=== PATIENT | male | born 1990 | race Caucasian/White ===

== ENCOUNTER 2021-02-23 11:25 | Emergency (ER) | payer BC ==
[~2021-02-23] VITALS: Ht 177.8 cm; Wt 75.8 kg
[~2021-02-23 11:25] MED LIST: LAMICTAL100 MG; LATUDA60 MG; POLYMYXIN B/TMP10 ML OP
[2021-02-23] MEDS ORDERED: ZYRTEC10 M4 PO (11:40)
[2021-02-23] MEDS ORDERED: FLONASE 0.05%50 MCG NARES (11:40)
[2021-02-23] MEDS ORDERED: NICODERM CQ1 EAC1 TRANSDERM (11:41)
[2021-02-23 12:06] LABS: ABSOLUTE BASOPHILS 0.1 thou/uL (0.0-0.2); ABSOLUTE EOSINOPHILS 0.1 thou/uL (0.0-0.7); ABSOLUTE LYMPHOCYTES 1.8 thou/uL (0.8-5.3); ABSOLUTE MONOCYTES 0.8 thou/uL (0.0-1.2); ABSOLUTE NEUTROPHILS 10.9 thou/uL (1.6-8.1); BASOPHILS 0.5 %; EOSINOPHILS 0.5 %; HEMATOCRIT 44.9 % (42.0-52.0); HEMOGLOBIN 15.6 gm/dL (14.0-18.0); LYMPHOCYTES 13.3 %; MCH 32.9 pg (26.0-34.0); MCHC 34.8 g/dL (28.0-37.0); MCV 94.4 fL (80.0-100.0); MONOCYTES 6.1 %; MPV 9.6 fl. (7.2-11.1); NUCLEATED RBCS 0 /100WBC; PLATELET COUNT* 224 thou/uL (150-400); POLYS 79.6 %; RBC 4.75 mil/uL (4.50-6.00); RDW-CV 12.5 % (10.5-14.5); WBC 13.7 thou/uL (4.0-11.0)
[2021-02-23 12:23] LABS: CALCIUM 8.9 mg/dL (8.5-10.1); CREATININE 0.7 mg/dL (0.6-1.3); POTASSIUM 3.8 mmol/L (3.5-5.1)
[2021-02-23 12:27] LABS: ALBUMIN 4.1 g/dL (3.4-5.0); TOTAL BILIRUBIN 0.4 mg/dL (<0.1-1.0); TOTAL PROTEIN 7.9 g/dL (6.4-8.2)
[2021-02-23 12:35] LABS: ALCOHOL < 10 mg/dL (<10); SALICYLATE 3.3 mg/dL (2.8-20.0)
[2021-02-23 12:36] LABS: URINE BILIRUBIN NEGATIVE (Negative); URINE BLOOD NEGATIVE (Negative); URINE CLARITY CLEAR; URINE COLOR YELLOW; URINE GLUCOSE-RANDOM NEGATIVE (Negative); URINE KETONES NEGATIVE (Negative); URINE LEUKOCYTES-REFLEX NEGATIVE (Negative); URINE NITRITE-REFLEX NEGATIVE (Negative); URINE PROTEIN NEGATIVE (Negative); URINE SPECIFIC GRAVITY <= 1.005 (1.005-1.030); URINE UROBILINOGEN 0.2 E.U./dl (0.2-1.0)
[2021-02-23 12:37] LABS: ACETAMINOPHEN < 2 ug/mL (10-30)
[2021-02-23 12:44] LABS: AMP/METHAMP Negative (Negative); BARBITURATES Negative (Negative); BENZODIAZEPINES Negative (Negative); COCAINE Negative (Negative); METHADONE Negative (Negative); OPIATES Negative (Negative); PCP Negative (Negative); THC POSITIVE (Negative)
[2021-02-23 17:05] VITALS: BP 138/91
== END 2021-02-23 17:07 | disposition home or self-care (01) ==
LOC: M.ERS 11:25
PROVIDERS: Emergency Medicine Emergency Medical Services
DX: F41.9 Anxiety disorder, unspecified (principal); M41.9 Scoliosis, unspecified; Z79.899 Other long term (current) drug therapy